=== PATIENT | male | born 1975 | race Caucasian/White ===

== ENCOUNTER 2020-08-29 08:47 | Outpatient (NON) | payer OTHER, SELFPAY ==
[2020-08-29 18:46] LABS: SARS-CoV-2 RNA PCR Negative
== END 2020-08-29 08:48 ==
LOC: ANHCOVIDDT 08:49
PROVIDERS: Visit Provider Student in an Organized Health Care Education/Training Program
DX: R05 Cough (principal); R51.9 Headache, unspecified; Z20.828 Contact with and (suspected) exposure to other viral communicable diseases
CPT/HCPCS: 87635; C9803; U0003

== ENCOUNTER 2025-04-18 15:44 | Outpatient (CLI) | payer OTHER, SELFPAY ==
--- NOTE | ~2025-04-18 | XR_ITS ---
CHEST RADIOGRAPH, PA AND LATERAL CLINICAL HISTORY: Cough, unspecified . COMPARISON: None available TECHNIQUE: PA and lateral views of the chest. FINDINGS The cardiomediastinal silhouette is unremarkable. The lungs are clear. IMPRESSION: No focal infiltrate or effusion. Reviewed, dictated and finalized at location A.
== END 2025-04-18 15:45 | disposition home or self-care (01) ==
PROVIDERS: PCP Student in an Organized Health Care Education/Training Program
DX: R05.9 Cough, unspecified (principal); R06.02 Shortness of breath; R50.9 Fever, unspecified
CPT/HCPCS: 71046